=== PATIENT | male | born 1935 | race Caucasian/White ===

== ENCOUNTER 2021-08-19 13:32 | Observation (INO) | payer MEDICARE, BC ==
[2021-08-19] MEDS ORDERED: Furosemide 40 MG/4 ML VIAL IVPUSH ONE (14:10)
[2021-08-19] MEDS ORDERED: Ipratropium 0.02% 0.5 MG/2.5 ML Neb Soln NEB ONE (14:54)
[2021-08-19] MEDS ORDERED: methylPREDNISolone Sodium Succinate 125 MG/2 ML SDV IVPUSH ONE (14:55)
[2021-08-19 15:42] LABS: BLOOD UREA NITROGEN,BUN 20 mg/dL (7.0-18.0); CHLORIDE,CL 103 mmol/L (98-107); GLUCOSE RANDOM 111 mg/dL (74-106); POTASSIUM,K 4.7 mmol/L (3.5-5.1); SODIUM,NA 137 mmol/L (136-148)
[2021-08-19] MEDS ORDERED: Iopamidol 755 MG/ML 500 ML Multipack Bottle IVPUSH STA (16:16)
[2021-08-19] MEDS ORDERED: Nitroglycerin 2% Oint 1 GM UD Packet TOP ONE (17:03)
[2021-08-19] MEDS: Enoxaparin 40 MG/0.4 ML Syringe SUBCUT SCH (22:51)
[2021-08-20] MEDS: Albuterol/Ipratropium 3.0-0.5 MG/3 ML Neb Soln NEB SCH ×4 (01:01→18:32)
[2021-08-20] MEDS ORDERED: Metoprolol Succinate 50 MG Tab.ER PO ONE (06:16)
[2021-08-20 07:26] LABS: BLOOD UREA NITROGEN,BUN 20 mg/dL (7.0-18.0); CARBON DIOXIDE,CO2 28.9 mmol/L (21.0-32.0); CHLORIDE,CL 103 mmol/L (98-107); GLUCOSE RANDOM 159 mg/dL (74-106); POTASSIUM,K 3.8 mmol/L (3.5-5.1); SODIUM,NA 138 mmol/L (136-148)
[2021-08-20] MEDS ORDERED: Levothyroxine 100 MCG Tab PO SCH (07:30)
[2021-08-20] MEDS: predniSONE 20 MG Tab PO SCH (08:10)
[2021-08-20] MEDS: Omeprazole 20 MG Cap.CR PO SCH (08:10)
[2021-08-20] MEDS: Digoxin 500 MCG/2 ML Amp IVPUSH SCH ×3 (08:59→12:58)
[2021-08-20] MEDS ORDERED: Furosemide 40 MG/4 ML VIAL IVPUSH SCH (09:00)
[2021-08-20] MEDS ORDERED: Amiodarone 200 MG Tab PO SCH (09:00)
[2021-08-20] MEDS: Metoprolol Tartrate 25 MG Tab PO SCH ×2 (09:02→20:00)
[2021-08-20] MEDS: Furosemide 40 MG/4 ML VIAL IVPUSH SCH (14:23)
[2021-08-20] MEDS ORDERED: Acetaminophen 325 MG Tab PO PRN (15:28)
[2021-08-20] MEDS: Enoxaparin 40 MG/0.4 ML Syringe SUBCUT SCH (22:50)
[2021-08-21] MEDS: Albuterol/Ipratropium 3.0-0.5 MG/3 ML Neb Soln NEB SCH ×3 (03:46→13:06)
[2021-08-21] MEDS ORDERED: Levothyroxine 125 MCG Tab PO SCH (07:30)
[2021-08-21 08:00] LABS: BLOOD UREA NITROGEN,BUN 23 mg/dL (7.0-18.0); CARBON DIOXIDE,CO2 27.7 mmol/L (21.0-32.0); CHLORIDE,CL 100 mmol/L (98-107); GLUCOSE RANDOM 104 mg/dL (74-106); POTASSIUM,K 3.7 mmol/L (3.5-5.1); SODIUM,NA 138 mmol/L (136-148)
[2021-08-21] MEDS: Furosemide 40 MG/4 ML VIAL IVPUSH SCH ×2 (08:14→14:24)
[2021-08-21] MEDS ORDERED: Digoxin 125 MCG Tab PO SCH (09:00)
[2021-08-21] MEDS: Metoprolol Tartrate 25 MG Tab PO SCH (09:14)
[2021-08-21] MEDS: predniSONE 20 MG Tab PO SCH (09:15)
[2021-08-21] MEDS: Omeprazole 20 MG Cap.CR PO SCH (09:15)
[2021-08-21] MEDS ORDERED: Metoprolol Tartrate 25 MG Tab PO ONE (10:09)
[2021-08-21 11:48] VITALS: BP 129/75; PULSE 89
[2021-08-21] MEDS ORDERED: Heparin Sodium 10 Units/ML 5 ML Syringe FLUSH SCH (22:00)
== END 2021-08-21 14:45 | disposition home or self-care (01) ==
LOC: MW.ED 13:32 → MW.MS 17:22
PROVIDERS: ADMIT Internal Medicine; ATTEND Internal Medicine
DX: I11.0 Hypertensive heart disease with heart failure (principal); I50.9 Heart failure, unspecified; I48.91 Unspecified atrial fibrillation; J20.9 Acute bronchitis, unspecified; N40.0 Benign prostatic hyperplasia without lower urinary tract symptoms; E03.9 Hypothyroidism, unspecified; Z79.890 Hormone replacement therapy; Z79.899 Other long term (current) drug therapy; Z20.822 Contact with and (suspected) exposure to COVID-19
CPT/HCPCS: 36415; 71045; 71275; 80048; 80053; 81003; 83690; 83735; 83880; 84443; 84484; 85025; 85379; 85610; 93005; 93306; 94640; 96372; 96374; 96375; 96376; 99285; A9270; G0378; J1160; J1642; J1650; J1940; J2930; Q9967; U0002; 99217; 99218; 99225; J7620-GY